=== PATIENT | female | born 1995 | race Caucasian/White ===

== ENCOUNTER 2017-08-20 11:21 | Emergency (ER) | payer BC, OTHER ==
[~2017-08-20] VITALS: Ht 165.1 cm; Wt 48.5 kg
[~2017-08-20 11:21] MED LIST: IBUP600 PO; OXYC1SOL5 PO; PERI8.6T PO
[2017-08-20 11:25] VITALS: BP 128/71; PULSE 99; RESP 16; TEMP 99.3; O2SAT 100
[2017-08-20] MEDS ORDERED: MIREIUD I-UTERINE (11:32)
[2017-08-20] MEDS ORDERED: ONDANSETRON HCL 4 MG/2 ML VIAL IV PUSH ONE (11:45)
[2017-08-20] MEDS ORDERED: SODIUM CHLOR 0.9% 1000 ML INJ 1,000 ML IV ONE (11:45)
--- NOTE | 2017-08-20 11:48 | PD ---
HPI Chief Complaint: GI Complaint Time Seen by Provider: 11:39 Travel History International Travel<30 days: No Contact w/Intl Traveler<30days: No Traveled to known affect area: No History of Present Illness HPI This 22-year-old female says she's had vomiting and diarrhea since last night. She having watery stool at this point. She had some sharp lower abdominal pain prior to the onset of the symptoms. She's had a Mirena in place for the past year. She has not had a period for 8 months. She is 1 para 1 she has some pain with urination and with bowel movements. PFSH Past Medical History Medical History: Denies Significant Hx Hx Anticoagulant Therapy: No Diabetes: No Diminished Hearing: No Influenza Vaccination: No ?: Not LMP: mirena : 1 Para: 0 Miscarriage: 0 : 0 Past Surgical History Section: Yes Social History Alcohol Use: No Tobacco Use: No Substance Use: No Allergies-Medications (Allergen,Severity, Reaction): Coded Allergies: No Known Allergies (Unverified Adverse Reaction, Unknown, 08/20/17) Reported Meds & Prescriptions Reported Meds & Active Scripts Active Reported Mirena (Levonorgestrel (Iud)) 20 Mcg/24 Hour (5 Years) Iud 1 Ea I-UTERINE ONCE Review of Systems General / Constitutional: No: Fever, Chills Eyes: No: Diploplia HENT: No: Headaches, Vertigo Cardiovascular: No: Chest Pain or Discomfort, Palpitations Respiratory: No: Cough, Shortness of Breath Gastrointestinal: Positive: Nausea, Vomiting, Diarrhea Genitourinary: Positive: Pelvic Pain Musculoskeletal: No: Myalgias, Arthralgias Skin: No Rash, No Itching Neurologic: No: Weakness, Dizziness Endocrine: No: Cold Intolerance Hematologic/Lymphatic: No: Easy Bruising Physical Exam Narrative GENERAL: Well-developed female SKIN: Focused skin assessment warm/dry. HEAD: Atraumatic. Normocephalic. EYES: Pupils equal and round. No scleral icterus. No injection or drainage. ENT: No nasal bleeding or discharge. Mucous membranes pink and moist. NECK: Trachea midline. No JVD. CARDIOVASCULAR: Regular rate and rhythm. No murmur appreciated. RESPIRATORY: No accessory muscle use. Clear to auscultation. Breath sounds equal bilaterally. GASTROINTESTINAL: Abdomen soft, non-tender, nondistended. Hepatic and splenic margins not palpable. There is some lower abdominal tenderness Pelvic exam: There is some yellowish vaginal discharge. There is minimal pain with movement of the cervix. The MERENA string is not seen MUSCULOSKELETAL: No obvious deformities. No clubbing. No cyanosis. No edema. NEUROLOGICAL: Awake and alert. No obvious cranial nerve deficits. Motor grossly within normal limits. Normal speech. PSYCHIATRIC: Appropriate mood and affect; insight and judgment normal. Data Data Last Documented VS Vital Signs Date Time Temp Pulse Resp B/P (MAP) Pulse Ox O2 Delivery O2 Flow Rate FiO2 08/20/17 12:52 85 16 112/69 (83) 99 Room Air 08/20/17 11:25 99.3 Orders Orders Urinalysis - C+S If Indicated (08/20/17 11:35) Ed Urine Pregnancytest Poc (08/20/17 11:35) Complete Blood Count With Diff (08/20/17 11:45) Comprehensive Metabolic Panel (08/20/17 11:45) Sodium Chlor 0.9% 1000 Ml Inj (Ns 1000 M (08/20/17 11:45) Ondansetron Inj (Zofran Inj) (08/20/17 11:45) Gc And Chlamydia Pcr (08/20/17 11:45) Abdomen, Kub Only (08/20/17 12:49) Labs Laboratory Tests Test 08/20/17 11:35 08/20/17 12:00 08/20/17 12:40 Urine Collection Type CLEAN CATCH Urine Color YELLOW Urine Turbidity SLIGHT Urine pH 5.5 Urine Specific [place] 1.034 Urine Protein NEG mg/dL Urine Glucose (UA) NEG mg/dL Urine Ketones NEG mg/dL Urine Occult Blood NEG Urine Nitrite NEG Urine Bilirubin NEG Urine Leukocyte Esterase NEG Urine Squamous Epithelial Cells 6-8 /hpf Urine Amorphous Sediment MOD Microscopic Urinalysis Comment CULT NOT INDICATED Urine Collection Time 1135 White Blood Count 9.3 TH/MM3 Red Blood Count 4.77 MIL/MM3 Hemoglobin 14.0 GM/DL Hematocrit 40.8 % Mean Corpuscular Volume 85.7 FL Mean Corpuscular Hemoglobin 29.3 PG Mean Corpuscular Hemoglobin Concent 34.2 % Red Cell Distribution Width 11.6 % Platelet Count 204 TH/MM3 Mean Platelet Volume 7.7 FL Neutrophils (%) (Auto) 91.3 % Lymphocytes (%) (Auto) 4.0 % Monocytes (%) (Auto) 3.7 % Eosinophils (%) (Auto) 0.6 % Basophils (%) (Auto) 0.4 % Neutrophils # (Auto) 8.5 TH/MM3 Lymphocytes # (Auto) 0.4 TH/MM3 Monocytes # (Auto) 0.3 TH/MM3 Eosinophils # (Auto) 0.1 TH/MM3 Basophils # (Auto) 0.0 TH/MM3 CBC Comment DIFF FINAL Differential Comment Blood Urea Nitrogen 16 MG/DL Creatinine 0.56 MG/DL Random Glucose 81 MG/DL Total Protein 7.3 GM/DL Albumin 4.1 GM/DL Calcium Level 8.6 MG/DL Alkaline Phosphatase 62 U/L Aspartate Amino Transf (AST/SGOT) 16 U/L Alanine Aminotransferase (ALT/SGPT) 20 U/L Total Bilirubin 1.2 MG/DL Sodium Level 139 MEQ/L Potassium Level 3.8 MEQ/L Chloride Level 106 MEQ/L Carbon Dioxide Level 24.6 MEQ/L Anion Gap 8 MEQ/L Estimat Glomerular Filtration Rate 134 ML/MIN MDM Medical Decision Making Medical Screen Exam Complete: Yes Emergency Medical Condition: Yes Medical Record Reviewed: Yes Differential Diagnosis Differential includes gastroenteritis, pelvic infection Narrative Course KUB was done to confirm that the Mirena was still in place and the Mirena is present. This appears to be gastroenteritis. She'll be given prescription for Zofran with recommendations for Imodium for diarrhea Diagnosis Primary Impression: Gastroenteritis Additional Instructions: Use Imodium for diarrhea Scripts Ondansetron Odt (Zofran Odt) 4 Mg Tab 4 MG SL Q6HR Y for Nausea/Vomiting, #10 TAB 0 Refills Prov: Renzo Hunt MD 08/20/17 Disposition: 01 DISCHARGE HOME Condition: Stable Renzo Hunt MD Aug 20, 2017 11:48
[2017-08-20 11:50] LABS: BILIRUBIN, URINE NEG (NEG); BLOOD, URINE NEG (NEG); GLUCOSE,URINE NEG (NEG); KETONE, URINE NEG (NEG); NITRITE,URINE NEG (NEG); PH, URINE 5.5 (5.0-8.5); URINE LEUKOCYTE ESTERASE NEG (NEG)
[2017-08-20 12:00] LABS: AMORPHOUS SEDIMENT, URINE MOD; URINE COLOR YELLOW (YELLW/STRAW)
[2017-08-20 12:12] LABS: AUTOMATED NEUTROPHIL # 8.5 TH/MM3 (1.8-7.7); BASOPHIL % 0.4 % (0.0-2.0); EOSINOPHIL # 0.1 TH/MM3 (0-0.4); EOSINOPHIL % 0.6 % (0.0-4.0); HEMATOCRIT 40.8 % (35.0-46.0); LYMPHOCYTE # 0.4 TH/MM3 (1.0-4.8); MEAN CELL VOLUME 85.7 FL (80.0-100.0); MEAN CORPUSCULAR HEMOGLOBIN 29.3 PG (27.0-34.0); MEAN CORPUSCULAR HGB CONC 34.2 % (32.0-36.0); MEAN PLATELET VOLUME 7.7 FL (7.0-11.0); MONO % 3.7 % (0.0-8.0); MONOCYTE # 0.3 TH/MM3 (0-0.9); NEUT % 91.3 % (16.0-70.0); PLATELET COUNT 204 TH/MM3 (150-450); RED BLOOD COUNT 4.77 MIL/MM3 (4.00-5.30); RED CELL DISTRIBUTION WIDTH 11.6 % (11.6-17.2); WHITE BLOOD COUNT 9.3 TH/MM3 (4.0-11.0)
[2017-08-20 12:18] LABS: CHLORIDE 106 MEQ/L (98-107); SODIUM (NA) 139 MEQ/L (136-145)
[2017-08-20 12:21] LABS: CALCIUM 8.6 MG/DL (8.5-10.1)
[2017-08-20 12:22] LABS: ALBUMIN 4.1 GM/DL (3.4-5.0); BICARBONATE 24.6 MEQ/L (21.0-32.0); BLOOD UREA NITROGEN 16 MG/DL (7-18); GLUCOSE,RANDOM 81 MG/DL (74-106)
[2017-08-20 12:25] LABS: ALT (GPT) 20 U/L (10-53); AST (GOT) 16 U/L (15-37); CREATININE 0.56 MG/DL (0.50-1.00); GLOMERULAR FILTRATION RATE 134 ML/MIN (>89)
[2017-08-20 12:26] LABS: TOTAL BILIRUBIN ADULT 1.2 MG/DL (0.2-1.0)
[2017-08-20 12:27] LABS: TOTAL PROTEIN 7.3 GM/DL (6.4-8.2)
[2017-08-20 12:28] LABS: ALKALINE PHOSPHATASE 62 U/L (45-117)
[2017-08-20 12:52] VITALS: BP 112/69; PULSE 85; RESP 16; O2SAT 99
--- NOTE | 2017-08-20 13:33 | RADRPT ---
EXAM DATE/TIME: 08/20/2017 13:11 [place] COMPARISON: No previous studies available for comparison. INDICATIONS : Nausea, vomiting, diarrhea, abdominal cramping. MEDICAL HISTORY : None. SURGICAL HISTORY : section. ENCOUNTER: Initial ACUITY: 3 days PAIN SCORE: 2/10 LOCATION: Bilateral lower quadrant abdomen FINDINGS: Supine view of the abdomen was performed. Gas-filled loops of nondilated large and small bowel. Sever al loops of gas-filled small bowel in the lower abdomen have mild wall thickening. No abnormal masses , calcifications, or organomegaly is seen. The osseous structures are unremarkable. IUD overlies the pelvis. CONCLUSION: 1. Nonspecific bowel gas pattern. A couple of loops of thick walled small bowel low within the abdome n are noted. This was just an acute inflammatory process. Jacob Glover Jr., MD on August 20, 2017 at 13:29 Board Certified Radiologist. This report was verified electronically.
[2017-08-20] MEDS ORDERED: ZOFR4TAB3 SL (13:41)
== END 2017-08-20 14:03 | disposition home or self-care (01) ==
LOC: PHED 11:21
DX: K52.9 Noninfective gastroenteritis and colitis, unspecified (principal); Z79.899 Other long term (current) drug therapy
CPT/HCPCS: 74018; 80053; 81001; 84703; 85025; 87491; 87591; 96361; 96374; 99284; J2405; J7030

== ENCOUNTER 2018-01-07 15:28 | Emergency (ER) | payer BC ==
[~2018-01-07 15:28] MED LIST changes: -IBUP600 PO; +MIREIUD I-UTERINE; -OXYC1SOL5 PO; -PERI8.6T PO; +ZOFR4TAB3 SL
[2018-01-07 15:30] VITALS: BP 114/65; PULSE 77; RESP 18; TEMP 98.5; O2SAT 98
[2018-01-07] MEDS ORDERED: PREN29TA PO (15:42)
--- NOTE | 2018-01-07 16:17 | PD ---
HPI Chief Complaint: Related Problem Time Seen by Provider: 15:56 Travel History International Travel<30 days: No Contact w/Intl Traveler<30days: No Traveled to known affect area: No History of Present Illness HPI 22 years old female presented ER for evaluation of lower abdominal pain. Patient is status post due to failure to progress, she is a 6 week according to LMP. Patient never had ultrasound to evaluate this , she started having pain in the lower abdomen for the last 3 days, denies any bleeding or discharge. She has no history of STDs, patient has no nausea or vomiting, she rates the pain 7 out of 10, right lower quadrant, nothing makes it better or worse, no fever or chills or night sweats. PFSH Past Medical History Hx Anticoagulant Therapy: No Diabetes: No Diminished Hearing: No ?: : 1 Para: 0 Miscarriage: 0 : 0 Past Surgical History Section: Yes Social History Alcohol Use: No Tobacco Use: No Substance Use: No Allergies-Medications (Allergen,Severity, Reaction): Coded Allergies: No Known Allergies (Unverified Adverse Reaction, Unknown, 01/07/18) Reported Meds & Prescriptions Reported Meds & Active Scripts Active Reported Plus Iron 29-1 mg ( Vit-Iron Carbonyl) 29 Mg Iron-1 Mg Tab 1 Tab PO DAILY Review of Systems Except as stated in HPI: all other systems reviewed are Neg Physical Exam Narrative GENERAL: Alert oriented 3 no acute distress. SKIN: Focused skin assessment warm/dry. HEAD: Atraumatic. Normocephalic. EYES: Pupils equal and round. No scleral icterus. No injection or drainage. ENT: No nasal bleeding or discharge. Mucous membranes pink and moist. NECK: Trachea midline. No JVD. CARDIOVASCULAR: Regular rate and rhythm. No murmur appreciated. RESPIRATORY: No accessory muscle use. Clear to auscultation. Breath sounds equal bilaterally. GASTROINTESTINAL: Abdomen soft, non-tender, nondistended. Hepatic and splenic margins not palpable. MUSCULOSKELETAL: No obvious deformities. No clubbing. No cyanosis. No edema. NEUROLOGICAL: Awake and alert. No obvious cranial nerve deficits. Motor grossly within normal limits. Normal speech. PSYCHIATRIC: Appropriate mood and affect; insight and judgment normal. Data Data Last Documented VS Vital Signs Date Time Temp Pulse Resp B/P (MAP) Pulse Ox O2 Delivery O2 Flow Rate FiO2 01/07/18 21:32 01/07/18 19:45 72 16 100 Room Air 01/07/18 15:30 98.5 Orders Orders Urinalysis - C+S If Indicated (01/07/18 16:14) Complete Blood Count With Diff (01/07/18 16:17) Comprehensive Metabolic Panel (01/07/18 16:17) Lipase (01/07/18 16:17) Sodium Chlor 0.9% 1000 Ml Inj (Ns 1000 M (01/07/18 16:30) I-Stat Profile (01/07/18 16:25) Ed Urine Pregnancytest Poc (01/07/18 17:08) Beta Hcg (Quant/Titer) (01/07/18 16:25) Us Pelvis Preg W Transvaginal (01/07/18 ) Ed Discharge Order (01/07/18 21:09) Labs Laboratory Tests Test 01/07/18 16:25 White Blood Count 7.0 TH/MM3 Red Blood Count 4.24 MIL/MM3 Hemoglobin 12.6 GM/DL Bedside Hemoglobin G/DL Hematocrit 37.1 % Bedside Hematocrit % Mean Corpuscular Volume 87.5 FL Mean Corpuscular Hemoglobin 29.7 PG Mean Corpuscular Hemoglobin Concent 34.0 % Red Cell Distribution Width 12.0 % Platelet Count 268 TH/MM3 Mean Platelet Volume 7.7 FL Neutrophils (%) (Auto) 70.2 % Lymphocytes (%) (Auto) 20.2 % Monocytes (%) (Auto) 6.4 % Eosinophils (%) (Auto) 1.8 % Basophils (%) (Auto) 1.4 % Neutrophils # (Auto) 4.9 TH/MM3 Lymphocytes # (Auto) 1.4 TH/MM3 Monocytes # (Auto) 0.5 TH/MM3 Eosinophils # (Auto) 0.1 TH/MM3 Basophils # (Auto) 0.1 TH/MM3 CBC Comment DIFF FINAL Differential Comment Urine Color YELLOW Urine Turbidity CLEAR Urine pH 5.5 Urine Specific [place] GREATER/EQUAL 1.030 Urine Protein NEG mg/dL Urine Glucose (UA) NEG mg/dL Urine Ketones NEG mg/dL Urine Occult Blood NEG Urine Nitrite NEG Urine Bilirubin NEG Urine Urobilinogen 0.2 MG/DL Urine Leukocyte Esterase NEG Urine RBC 0-3 /hpf Urine WBC 3-5 /hpf Urine Squamous Epithelial Cells > 8 /hpf Urine Bacteria FEW /hpf Urine Mucus MOD /lpf Microscopic Urinalysis Comment CULT NOT INDICATED Bedside Sodium 137 MMOL/L Blood Urea Nitrogen 14 MG/DL Creatinine 0.81 MG/DL Random Glucose 77 MG/DL Total Protein 6.7 GM/DL Albumin 3.8 GM/DL Calcium Level 8.1 MG/DL Alkaline Phosphatase 55 U/L Aspartate Amino Transf (AST/SGOT) 16 U/L Alanine Aminotransferase (ALT/SGPT) 19 U/L Total Bilirubin 0.6 MG/DL Sodium Level 139 MEQ/L Potassium Level 3.8 MEQ/L Chloride Level 107 MEQ/L Carbon Dioxide Level 23.4 MEQ/L Bedside Potassium 3.7 MMOL/L Bedside Chloride 102 MMOL/L Anion Gap 9 MEQ/L Bedside Blood Urea Nitrogen 14 MG/DL Bedside Creatinine 0.9 MG/DL Estimat Glomerular Filtration Rate 88 ML/MIN Bedside Glucose 80 MG/DL Lipase 76 U/L Human Chorionic Gonadotropin, Quant 3322 MIU/ML MDM Medical Decision Making Medical Screen Exam Complete: Yes Emergency Medical Condition: Yes Differential Diagnosis Ectopic , ligament pain, UTI. Narrative Course Pending ultrasound, labs will sign out to Dr. Ventura next shift. Haroon Reilly MD Jan 07, 2018 16:17
[2018-01-07 16:30] LABS: AUTOMATED NEUTROPHIL # 4.9 TH/MM3 (1.8-7.7); BASOPHIL # 0.1 TH/MM3 (0-0.2); BASOPHIL % 1.4 % (0.0-2.0); EOSINOPHIL # 0.1 TH/MM3 (0-0.4); EOSINOPHIL % 1.8 % (0.0-4.0); HEMATOCRIT 37.1 % (35.0-46.0); HEMOGLOBIN 12.6 GM/DL (11.6-15.3); LYMPH % 20.2 % (9.0-44.0); LYMPHOCYTE # 1.4 TH/MM3 (1.0-4.8); MEAN CELL VOLUME 87.5 FL (80.0-100.0); MEAN CORPUSCULAR HEMOGLOBIN 29.7 PG (27.0-34.0); MEAN PLATELET VOLUME 7.7 FL (7.0-11.0); MONO % 6.4 % (0.0-8.0); MONOCYTE # 0.5 TH/MM3 (0-0.9); NEUT % 70.2 % (16.0-70.0); PLATELET COUNT 268 TH/MM3 (150-450); RED BLOOD COUNT 4.24 MIL/MM3 (4.00-5.30)
[2018-01-07] MEDS ORDERED: SODIUM CHLOR 0.9% 1000 ML INJ 1,000 ML IV ONE (16:30)
[2018-01-07 16:38] LABS: BILIRUBIN, URINE NEG (NEG); BLOOD, URINE NEG (NEG); GLUCOSE,URINE NEG (NEG); KETONE, URINE NEG (NEG); NITRITE,URINE NEG (NEG); PH, URINE 5.5 (5.0-8.5); URINE COLOR YELLOW (YELLW/STRAW); URINE LEUKOCYTE ESTERASE NEG (NEG)
[2018-01-07 16:54] LABS: BACTERIA, URINE FEW /hpf; MUCUS URINE MOD /lpf (OCC); RBC, URINE 0-3 /hpf (0-3); SQUAMOUS EPITHELIAL CELL URINE > 8 /hpf (0-5)
[2018-01-07 18:02] LABS: ALBUMIN 3.8 GM/DL (3.4-5.0); ALT (GPT) 19 U/L (10-53); AST (GOT) 16 U/L (15-37); BICARBONATE 23.4 MEQ/L (21.0-32.0); BLOOD UREA NITROGEN 14 MG/DL (7-18); CALCIUM 8.1 MG/DL (8.5-10.1); CHLORIDE 107 MEQ/L (98-107); CREATININE 0.81 MG/DL (0.50-1.00); GLOMERULAR FILTRATION RATE 88 ML/MIN (>89); GLUCOSE,RANDOM 77 MG/DL (74-106); SODIUM (NA) 139 MEQ/L (136-145)
[2018-01-07 18:19] LABS: ALKALINE PHOSPHATASE 55 U/L (45-117); TOTAL BILIRUBIN ADULT 0.6 MG/DL (0.2-1.0); TOTAL PROTEIN 6.7 GM/DL (6.4-8.2)
[2018-01-07 19:45] VITALS: BP 95/66; PULSE 72; RESP 16; O2SAT 100
--- NOTE | 2018-01-07 20:24 | RADRPT ---
EXAM DATE: 01/07/2018 7:57 PM EDT AGE/SEX: 22 years / Female INDICATIONS: Pelvic pain. CLINICAL DATA: This is the patient's initial encounter. Patient reports that signs and symptoms have been present for 1 day and indicates a pain score of 4/10. MEDICAL/SURGICAL HISTORY: . section. COMPARISON: No prior exams available for comparison. TECHNIQUE: Real-time ultrasound of the pelvis was performed using an endovaginal transducer. [facility] [place] MEASUREMENTS (cm x cm x cm): Uterus:__Measures 11.1 x 5.8 x 7.4 cm Endometrial Stripe:__13 mm Right Ovary:__Measures 2.4 x 1.7 x 1.9 cm Left Ovary:__Measures 2.3 x 1.8 x 1.6 cm FINDINGS: Intrauterine gestational sac is present measures almost 1 cm and a yolk sac is identified which is ou t of range for accurate aging of the patient's . pole is not visualized. There is no f ree fluid in the cul-de-sac. There is a small cyst in the right ovary measures 8 mm in size. CONCLUSION: 1. There is no pole and clinical correlation/follow-up is suggested for viability, anembryonic should be entertained. Electronically signed by: Franci Mari MD 01/07/2018 8:22 PM EDT
--- NOTE | 2018-01-07 20:36 | PD ---
Physical Exam Date Seen by Provider: Jan 07, 2018 Time Seen by Provider: 20:31 Narrative accepted in transfer of care from Dr Reilly GENERAL: Well-developed well-nourished female no acute distress no respiratory distress SKIN: Warm and dry. GASTROINTESTINAL: Abdomen soft, non-tender, nondistended. Pelvic exam: Normal external exam no redness induration no lesion; speculum exam scant white clear mucus, no blood no tissue no clots cervical loss closed; bimanual exam no cervical motion tenderness no adnexal mass or tenderness to direct palpation cervical os closed. Data Data Last Documented VS Vital Signs Date Time Temp Pulse Resp B/P (MAP) Pulse Ox O2 Delivery O2 Flow Rate FiO2 01/07/18 19:45 72 16 95/66 (76) 100 Room Air 01/07/18 15:30 98.5 Orders Orders Urinalysis - C+S If Indicated (01/07/18 16:14) Complete Blood Count With Diff (01/07/18 16:17) Comprehensive Metabolic Panel (01/07/18 16:17) Lipase (01/07/18 16:17) Sodium Chlor 0.9% 1000 Ml Inj (Ns 1000 M (01/07/18 16:30) I-Stat Profile (01/07/18 16:25) Ed Urine Pregnancytest Poc (01/07/18 17:08) Beta Hcg (Quant/Titer) (01/07/18 16:25) Us Pelvis Preg W Transvaginal (01/07/18 ) Ed Discharge Order (01/07/18 21:09) Labs Laboratory Tests Test 01/07/18 16:25 White Blood Count 7.0 TH/MM3 Red Blood Count 4.24 MIL/MM3 Hemoglobin 12.6 GM/DL Bedside Hemoglobin G/DL Hematocrit 37.1 % Bedside Hematocrit % Mean Corpuscular Volume 87.5 FL Mean Corpuscular Hemoglobin 29.7 PG Mean Corpuscular Hemoglobin Concent 34.0 % Red Cell Distribution Width 12.0 % Platelet Count 268 TH/MM3 Mean Platelet Volume 7.7 FL Neutrophils (%) (Auto) 70.2 % Lymphocytes (%) (Auto) 20.2 % Monocytes (%) (Auto) 6.4 % Eosinophils (%) (Auto) 1.8 % Basophils (%) (Auto) 1.4 % Neutrophils # (Auto) 4.9 TH/MM3 Lymphocytes # (Auto) 1.4 TH/MM3 Monocytes # (Auto) 0.5 TH/MM3 Eosinophils # (Auto) 0.1 TH/MM3 Basophils # (Auto) 0.1 TH/MM3 CBC Comment DIFF FINAL Differential Comment Urine Color YELLOW Urine Turbidity CLEAR Urine pH 5.5 Urine Specific [place] GREATER/EQUAL 1.030 Urine Protein NEG mg/dL Urine Glucose (UA) NEG mg/dL Urine Ketones NEG mg/dL Urine Occult Blood NEG Urine Nitrite NEG Urine Bilirubin NEG Urine Urobilinogen 0.2 MG/DL Urine Leukocyte Esterase NEG Urine RBC 0-3 /hpf Urine WBC 3-5 /hpf Urine Squamous Epithelial Cells > 8 /hpf Urine Bacteria FEW /hpf Urine Mucus MOD /lpf Microscopic Urinalysis Comment CULT NOT INDICATED Bedside Sodium 137 MMOL/L Blood Urea Nitrogen 14 MG/DL Creatinine 0.81 MG/DL Random Glucose 77 MG/DL Total Protein 6.7 GM/DL Albumin 3.8 GM/DL Calcium Level 8.1 MG/DL Alkaline Phosphatase 55 U/L Aspartate Amino Transf (AST/SGOT) 16 U/L Alanine Aminotransferase (ALT/SGPT) 19 U/L Total Bilirubin 0.6 MG/DL Sodium Level 139 MEQ/L Potassium Level 3.8 MEQ/L Chloride Level 107 MEQ/L Carbon Dioxide Level 23.4 MEQ/L Bedside Potassium 3.7 MMOL/L Bedside Chloride 102 MMOL/L Anion Gap 9 MEQ/L Bedside Blood Urea Nitrogen 14 MG/DL Bedside Creatinine 0.9 MG/DL Estimat Glomerular Filtration Rate 88 ML/MIN Bedside Glucose 80 MG/DL Lipase 76 U/L Human Chorionic Gonadotropin, Quant 3322 MIU/ML [facility] Medical Record Reviewed: Yes Supervised Visit with GALLO: No Interpretation(s) hc, elevated Last Impressions Pelvis Ultrasound 01/07/18 0000 Signed Impressions: CONCLUSION: 1. There is no pole and clinical correlation/follow-up is suggested for viability, anembryonic should be entertained. CBC & BMP Diagram 01/07/18 16:25 Total Protein 6.7, Albumin 3.8, Calcium Level 8.1 L, Alkaline Phosphatase 55, Aspartate Amino Transf (AST/SGOT) 16, Alanine Aminotransferase (ALT/SGPT) 19, Total Bilirubin 0.6 Vital Signs Date Time Temp Pulse Resp B/P (MAP) Pulse Ox O2 Delivery O2 Flow Rate FiO2 01/07/18 19:45 72 16 95/66 (76) 100 Room Air 01/07/18 15:30 98.5 77 18 114/65 (81) 98 Differential Diagnosis accepted in transfer of care from Dr Reilly; please refr to his note Narrative Course accepted in transfer of care from Dr Reilly; follow up US and disposition Patient informed of lab results ultrasound results states discomfort is 0/10 in intensity; only noted pain with repetitive lifting at work. Pelvic exam performed by me and patient is nontender no palpable mass no cervical motion tenderness office is closed there is no blood tissue or clots in the vaginal vault only scant clear white discharge. At this point time patient is asymptomatic but type is O+ ultrasound shows possible blighted ovum and small non-complicated right ovarian cyst no free fluid and nontender pelvic exam. Patient will need follow-up with her [employer]PER[employer] is to call her [employer] SUPERVISOR's office as she has not yet established for this was an [employer] plans to follow-up with Dr. Herrmann she also needs to have a repeat quantitative hCG in 48 hours and repeat exam possible repeat ultrasound. Patient is return immediately to the emergency department for recurrent pain bleeding or any concerns. Patient is aware that there is no obvious embryo noted on ultrasound therefore concern for blighted ovum versus dates not consistent with ultrasound and dates not consistent with quantitative hCG and also still concern for possible ectopic. Patient has a nontender pelvic exam and no vaginal bleeding. This point time patient will be discharged to home with close follow-up with her [employer] Dr. Herrmann Diagnosis Primary Impression: Qualified Codes: Z3A.01 - Less than 8 weeks gestation of Referrals: Nelsy Herrmann MD call for appointment Patient Instructions: General Instructions Departure Forms: Tests/Procedures, Work Release Special Instructions: No lifting more than 5# x 2 days Additional Instruction: Increase fluid hydration No lifting greater than 5 pounds May take acetaminophen/Tylenol as needed for pain greater than 5/10 intensity Continue vitamins Recommend 48 hour recheck and hormone level check at 48 hours Return to the emergency department for pain, bleeding, or any concerns Disposition: 01 DISCHARGE HOME Condition: Stable Clare Ventura MD Jan 07, 2018 20:36
== END 2018-01-07 21:33 | disposition home or self-care (01) ==
LOC: PHED 15:28
DX: O34.81 Maternal care for other abnormalities of pelvic organs, first trimester (principal); N83.201 Unspecified ovarian cyst, right side; Z3A.01 Less than 8 weeks gestation of pregnancy; Z34.91 Encounter for supervision of normal pregnancy, unspecified, first trimester
CPT/HCPCS: 76801; 76817; 80053; 81001; 83690; 84702; 84703; 85025; 96360; 96361; 99284; J7030; 80048